=== PATIENT | female | born 1995 | race American Indian/Alaskan Native ===

== ENCOUNTER 2021-08-23 14:14 | Emergency (ER) | payer SELFPAY ==
--- NOTE | 2021-08-23 16:25 | XRay Report ---
RIGHT KNEE 3 VIEWS INDICATION / CLINICAL INFORMATION: Fall with right knee pain. COMPARISON: None available. FINDINGS: BONES / JOINT(S): There is mild spurring at the insertion of the quadriceps tendon on the upper pole the patella anteriorly. No significant arthritis. No evidence of acute fracture, subluxation or joint effusion. SOFT TISSUES: No significant abnormality. ADDITIONAL FINDINGS: None. Signer Name: Long Stahl MD Signed: 08/23/2021 4:20 PM Workstation Name: [id number]
[2021-08-23] MEDS ORDERED: ACETAMINOPHEN W/CODEINE 300-30 MG TAB PO ONE (17:09)
[2021-08-23] MEDS ORDERED: KETOROLAC 10 MG TAB PO ONE (17:09)
--- NOTE | 2021-08-23 17:12 | Emergency Department Report ---
ED Lower Extremity HPI - General Chief Complaint: Fall Stated Complaint: DISLOCATED RT KNEE Time Seen by Provider: 08/23/21 17:00 Source: patient, EMS Mode of arrival: Stretcher Limitations: No Limitations - History of Present Illness Initial Comments: 26-year-old female with no past medical history presents to the emergency department for evaluation of right knee pain and swelling since last night. She states that when she was taking out the garbage last night, she hit her right knee and it looked like the kneecap was out of place and she has been having pain and swelling since then. Complaint: knee injury -: days(s) Time: 01:00 Injury: Knee: Right Type of Injury: blunt (Hit with trash can) Place: work Severity: severe Severity scale (0 -10): 10 Worsens With: weight bearing, movement, palpation Context: direct blow Associated Symptoms: swelling, able to partially bear weight - Related Data Previous Rx's Medication Instructions Recorded Last Taken Type Naproxen [Naprosyn] 500 mg PO BID #14 tab 08/23/21 Unknown Rx Allergies Allergy/AdvReac Type Severity Reaction Status Date / Time No Known Allergies Allergy Verified 08/23/21 15:45 ED Review of Systems ROS: Stated complaint: DISLOCATED RT KNEE Other details as noted in HPI Comment: All other systems reviewed and negative Constitutional: denies: chills, fever Eyes: denies: eye pain ENT: denies: ear pain Respiratory: denies: cough, shortness of breath Cardiovascular: denies: chest pain, palpitations, dyspnea on exertion Endocrine: no symptoms reported Gastrointestinal: denies: abdominal pain, nausea, vomiting Genitourinary: denies: urgency, dysuria Musculoskeletal: denies: back pain Skin: denies: rash, lesions Neurological: denies: headache, weakness, numbness, paresthesias Psychiatric: denies: anxiety Hematological/Lymphatic: denies: easy bleeding, easy bruising ED Past Medical Hx - Past Medical History Previous Medical History?: No - Medications Home Medications: Home Medications Medication Instructions Recorded Confirmed Last Taken Type Naproxen [Naprosyn] 500 mg PO BID #14 tab 08/23/21 Unknown Rx ED Physical Exam - General Limitations: No Limitations General appearance: alert, in no apparent distress - Head Head exam: Absent: atraumatic, normocephalic - Eye Eye exam: Present: normal appearance. Absent: conjunctival injection - Neck Neck exam: Present: normal inspection. Absent: tenderness - Respiratory Respiratory exam: Absent: respiratory distress - Cardiovascular Cardiovascular Exam: Present: regular rate - GI/Abdominal GI/Abdominal exam: Absent: distended - Expanded Lower Extremity Exam Right Knee exam: Present: tenderness, swelling. Absent: full ROM, abrasion, laceration, ecchymosis, deformity, dislocation, erythema, effusion Neuro vascular tendon exam: Absent: no vascular compromise, pulse deficit, abnormal cap refill, motor deficit, sensory deficit - Back Exam Back exam: Present: normal inspection. Absent: tenderness - Neurological Exam Neurological exam: Present: alert, oriented X3 - Psychiatric Psychiatric exam: Present: normal affect, normal mood - Skin Skin exam: Present: warm, dry, intact, normal color ED Course Vital Signs 08/23/21 15:42 Temperature 98.5 F Pulse Rate 77 Respiratory 16 Rate Blood Pressure 124/70 O2 Sat by Pulse 100 Oximetry ED Lower Extremity MDM - Radiology Data Radiology results: report reviewed, image reviewed Right knee x-ray FINDINGS: BONES / JOINT(S): There is mild spurring at the insertion of the quadriceps tendon on the upper pole the patella anteriorly. No significant arthritis. No evidence of acute fracture, subluxation or joint effusion. SOFT TISSUES: No significant abnormality. ADDITIONAL FINDINGS: None. - Medical Decision Making 26-year-old female with no past medical history presents to the emergency department for evaluation of right knee pain and swelling since last night. She states that when she was taking out the garbage last night, she hit her right knee and it looked like the kneecap was out of place and she has been having pain and swelling since then. Right knee x-ray without any acute abnormalities Patient will be treated with a one-time dose of Toradol along with Tylenol 3 for pain and sent home with 7-day course of naproxen for pain and swelling. She was advised that if she does not have significant improvement in the next week to follow-up with orthopedics for more advanced testing. She verbalized understanding of and agreement with plan of care. Critical care attestation.: If time is entered above; I have spent that time in minutes in the direct care of this critically ill patient, excluding procedure time. ED Disposition Clinical Impression: Pain and swelling of right knee Disposition: HOME / SELF CARE / HOMELESS Is pt being admited?: No Does the pt Need Aspirin: No Condition: Stable Instructions: How to Use Cold Therapy, [id number], Acute Knee Pain, Adult, [id number] Additional Instructions: Take medications as prescribed. If no improvement follow-up with orthopedics for further evaluation. Prescriptions: Naproxen [Naprosyn] 500 mg PO BID #14 tab Referrals: ARNOL PLAZA MD [Staff Physician] - 3-5 Days Time of Disposition: 17:11
[2021-08-23 17:59] VITALS: BP 107/74
== END 2021-08-23 18:55 | disposition home or self-care (01) ==
LOC: ED 14:14
DX: M25.561 Pain in right knee (principal); Z79.899 Other long term (current) drug therapy
CPT/HCPCS: 99283